=== PATIENT | male | born 1955 | race Caucasian/White ===

== ENCOUNTER 2018-09-11 13:36 | Inpatient (IN) ==
--- OUTSIDE RECORDS SUMMARY | 2018-09-11 13:42 | External Medical Summary | Continuity of Care Document ---
:1955 Author Name Sun Huynh, Provider Address Unavailable Unavailable , Care Team Providers Name Role Phone Rajesh [email or web address] SAMUEL GONZALEZ Unavailable Unavailable Unavailable Unavailable Unavailable Problems Hypertension (401.9) (I10) Pneumothorax (512.89) (J93.9) Blunt chest trauma (959.11) (S29.8XXA) Allergies and Adverse Reactions No Known Drug Allergies (Allergy) Medications Benazepril HCl - 10 MG Oral Tablet; TAKE 1 TABLET DAILY. Start: 05-Aug-2017 Refills: 0 Vitamin E-200 200 UNIT Oral Capsule; TAKE 1 CAPSULE Daily Start: 05-Aug-2017 Refills: 0 Procedures Procedures not documented Immunizations Immunizations not documented Family History Mother No pertinent family history (V49.89) (Z78.9) Status: Active Father No pertinent family history (V49.89) (Z78.9) Status: Active uncle Family history of malignant neoplasm of colon (V16.0) (Z80.0 ) Status: Active Social History - Smoking Status Former smoker Plan of Treatment Planned Observations Planned Goals not documented Results No Known Results Results not documented Encounters Appointment; Jose A Silva M.D. 05-Aug-2017 10:10 Encounter Diagnosis: Problem not documented
[2018-09-11] MEDS ORDERED: dilTIAZem HCl 5 MG/ML 5 ML VIAL IV STA (14:13)
[2018-09-11] MEDS ORDERED: dilTIAZem HCl 125 MG in DEXTROSE 5% 100 ML IV STA (14:13)
[2018-09-11 14:24] LABS: Basophils # (auto) 0.06 K/uL (0-0.2); Basophils % (auto) 0.7 %; Eosinophils # (auto) 0.17 K/uL (0-0.5); Eosinophils % (auto) 1.9 %; Hematocrit (blood only) 44.4 % (42-52); Hemoglobin 15.5 g/dL (14.0-18.0); Immature Granulocytes # (auto) 0.03 K/uL (0.00-0.02); Immature Granulocytes % (auto) 0.3 %; Lymphocytes # (auto) 2.57 K/uL (1.2-3.4); Mean Corpuscular Hgb Conc 34.9 g/dL (32-36); Mean Corpuscular Volume 96.3 fL (80-100); Mean Platelet Volume 10.4 fL (7.4-10.4); Monocytes # (auto) 0.69 K/uL (0.11-0.59); Monocytes % (auto) 7.8 %; Neutrophils # (auto) 5.34 K/uL (1.4-6.5); Neutrophils % (auto) 60.3 %; Platelet Count 183 K/uL (130-400); RDW Coefficient of Variation 13.5 % (11.5-14.5); RDW Standard Deviation 47.5 fL (36.4-46.3); Red Blood Count 4.61 M/uL (4.7-6.1); White Blood Count 8.86 K/uL (4.8-10.8)
--- NOTE | 2018-09-11 14:30 | XRay Report ---
XR chest 1V portable CLINICAL HISTORY: weakness dyspnea COMPARISON STUDY: 08/04/2017 FINDINGS: Cardiomegaly. Diaphragms are smooth. The lungs are clear. IMPRESSION: Cardiomegaly. Otherwise negative study. The above report was generated using voice recognition software. It may contain grammatical, syntax or spelling errors. Electronically signed by: Eusebio Beckman M.D. 09/11/2018 2:29 PM
[2018-09-11 14:33] LABS: INR 1.1 (0.9-1.1); Partial Thromboplastin Time 27.5 Seconds (21.0-31.0); Prothrombin Time 10.9 Seconds (9.0-12.0)
[2018-09-11 14:34] LABS: Alanine Aminotransferase 33 U/L (12-78); Albumin Level 3.6 gm/dl (3.4-5.0); Aspartate Aminotransferase 35 U/L (15-37); BUN Creatinine Ratio 25.1 (10-20); Blood Urea Nitrogen 34 mg/dl (7-18); Calcium 8.9 mg/dl (8.5-10.1); Carbon Dioxide 26 mmol/L (21-32); Chloride 110 mmol/L (98-107); Est GFR (African American) 63.9; Est GFR (Non-African American) 55.1; Glucose 119 mg/dl (70-99); Magnesium 2.2 mg/dl (1.8-2.4); Potassium 3.8 mmol/L (3.5-5.1); Sodium 143 mmol/L (136-145)
[2018-09-11 14:45] LABS: Alkaline Phosphatase 78 U/L (45-117); Bilirubin,Total 1.1 mg/dl (0.2-1); Globulin 3.6 gm/dl (2.5-4.0); Total Protein 7.2 gm/dl (6.4-8.2); Troponin I < 0.015 ng/ml (0-0.045)
--- NOTE | 2018-09-11 15:35 | History & Physical Report ---
Date of Service September 11, 2018 Assessment & Plan (1) Atrial fibrillation with RVR: Telemetry. Continue diltiazem drip. Continue metoprolol orally. Lovenox 1 mg/kg subcutaneously every 12 hours. Await cardiology consultation and recommendations Present on Admission?: Yes (2) Dilated cardiomyopathy: Outpatient cardiac echo today reveals mild LVH with dilated left ventricle with global hypokinesis with ejection fraction 25%. Continue ANIKA inhibitor therapy. Cardiology consultation pending. Considering abnormal EKG, this may be ischemic in nature. Present on Admission?: Yes (3) HTN (hypertension): Continue ANIKA inhibitor and beta-eula therapy (4) DVT prophylaxis: Lovenox subcu History of Present Illness Primary Care Provider: Jolanta Jordan, DO Palpitations, dyspnea on exertion 63-year-old male with essential hypertension who has noticed intermittent palpitations and dyspnea on exertion since June. He was found to have atrial fibrillation with rapid ventricular rate today while he was getting a cardiac echo as an outpatient. The cardiac echo report reveals mild LVH with a dilated ventricle and global hypokinesis with estimated EF 25%. He was sent to the ED for evaluation. EKG reveals lateral T wave inversions. However, he denies any chest pain. He denies lightheadedness or syncope. There is no previous cardiac history. He is now on a Cardizem drip and his rate has been controlled. He takes Toprol-XL 25 mg daily, aspirin 81 mg daily, benazepr il 20/25 1 tablet daily. Pressure is 144/99 on admission. He will be started on Lovenox 1 mg/kg subcutaneously every 12 hours and switch to an oral medication per cardiology recommendations. He is admitted to a telemetry bed. Allergies Allergy/AdvReac Type Severity Reaction Status Date / Time No Known Allergies Allergy Unverified 08/04/17 21:50 Home Medications Home Medications Medication Instructions Recorded Confirmed Type Oxycodone Immediate Rel Tab 1 - 2 tab PO Q4H PRN #20 tab 08/04/17 Rx (ROXICODONE IR) Past Med/Surg History Medical History Dilated cardiomyopathy (Acute) Atrial fibrillation with RVR (Acute) HTN (hypertension) (Chronic) Social History Feels Safe at Home: Yes Smoking Status: Former smoker Review of Systems Review of Systems: Constitutional-no fever or chills ENT-no blurred vision, no double vision, no epistaxis, no sore throat Respiratory-shortness of breath with exertion Cardiac-intermittent palpitations. No chest discomfort GI-no nausea, vomiting, diarrhea, melena, hematochezia -no urinary retention, no urinary incontinence, no dysuria, no hematuria Musculoskeletal-intermittent low back pain with intermittent radiation to the left leg Skin-no bruising, no rashes, no pruritus Neuro-no isolated weakness, no paresthesia, no weakness Psych-no depression, no anxiety Physical Exam Physical Exam: General-alert and oriented x3, no fevers, no chills HEENT-head atraumatic and normocephalic, TMs intact bilaterally, pupils equal and reactive to light, extraocular muscles intact Neck-no lymphadenopathy or thyromegaly, trachea midline Chest-clear to auscultation percussion. No rales wheezing or rhonchi Cardiac-irregular rhythm, rate controlled at this time. No JVD. No audible murmurs Abdomen-normal bowel sounds, nontender, no hepatosplenomegaly Extremities-no cyanosis, clubbing. 1+ pitting edema bilateral lower extremities below the knees Neuro-cranial nerves II through XII intact, motor and sensory function within normal limits, strength symmetrical , no focal deficits Psych-normal affect, normal mood Results & Data Vital Signs (Past 12 Hours) Vital Signs Temp Pulse Resp BP Pulse Ox 09/11/18 14:59 96 09/11/18 13:42 36.5 C 136 H 20 144/99 H 95 Laboratory Results 09/11/18 14:02 09/11/18 14:02 PG Care Time/CCT Total # of Minutes Spent Total Time Spent with Patient: Total time spent is greater than 50% in coordination of care (as documented) at patient's floor/unit and/or counseling patient:
[2018-09-11] MEDS ORDERED: ONDANSETRON INJ 2 MG/ML 2 ML VIAL IV PRN (16:07)
[2018-09-11] MEDS ORDERED: ACETAMINOPHEN 325 MG TAB PO PRN (16:07)
[2018-09-11] MEDS ORDERED: ALUMINUM/MAGNESIUM SUSP 30 ML UDC PO PRN (16:07)
[2018-09-11] MEDS ORDERED: ENOXAPARIN 1 MG/KG SQ SCH (16:07)
[2018-09-11 16:29] LABS: T4 Free Thyroxine 1.14 ng/dl (0.8-1.6)
--- NOTE | 2018-09-11 17:46 | Emergency Department Note ---
Entered by Wilfrid Roberts acting as a scribe for History of Present Illness General Chief complaint: Cardiac Assessment Stated complaint: CARDIAC ACCESSMENT Time Seen by Provider: 09/11/18 14:07 Source: patient History of Present Illness Onset (ago): month(s) 2 Location: chest Pain Consistency: + other (worsening) Maximum Pain Intensity: 0 Quality: + other (shortness of breath) Exacerbated By: + movement Associated symptoms: + other (+increased heart rate; +back aches that will radiate to hips and sides of legs ); no chest pain The patient is a 63 year old male who presents to the Emergency Room with complaints of worsening shortness of breath over the past two months. The patient states that he experiences shortness of breath with physical exertion. The patient also notes increased resting heart rate, but the patient denies chest pain. The patient states he went to see Dr. Sudheer Rand-Hoisting Pile Driving Engineer for these issues, but following an ultrasound performed by Dr. Rand today, the patient reports that Dr. Rand told him he had tachycardia induced cardiomyopathy and that he should go to the ER. The patient also notes of back aches that will radiate to hips and sides of legs.The patient reports he takes metoprolol, benazepril, and low dose aspirin. Home Medications Home Medications Medication Instructions Recorded Confirmed Type aspirin [Aspir-81] 81 mg PO DAILY 09/11/18 09/11/18 History benazepril-hydrochlorothiazide 1 tab PO DAILY 09/11/18 09/11/18 History [Lotensin HCT] ibuprofen [IBU] 600 mg PO QID PRN 09/11/18 09/11/18 History metoprolol succinate [Toprol XL] 50 mg PO DAILY 09/11/18 09/11/18 History sodium chloride [Saline Nasal Mist] 1 spray INTRANASAL BID PRN 09/11/18 09/11/18 History vitamin B complex 1 tab PO DAILY 09/11/18 09/11/18 History Allergies Allergy/AdvReac Type Severity Reaction Status Date / Time No Known Allergies Allergy Unverified 09/11/18 15:36 Past Med/Surg History Medical History Dilated cardiomyopathy (Acute) Atrial fibrillation with RVR (Acute) HTN (hypertension) (Chronic) Family History Other No significant family history Social History Communication Ability: Effective 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 and A total of 10 systems reviewed and were otherwise negative Physical Exam Vital Signs Vital Signs - 24 hr 09/11/18 13:42 09/11/18 14:00 09/11/18 14:10 Temperature 36.5 C Temperature Source Oral Sepsis Recent Fever Within 48 Hours No Sepsis New/Unexplained Change in Mental Status No Sepsis Action Taken by Nursing No Action Required Pulse Rate 136 H 116 H 116 H Pulse Rate from SpO2 Sensor Respiratory Rate 20 23 22 Blood Pressure 144/99 H Blood Pressure Mean 114 Pulse Oximetry 95 Oxygen Delivery Method Room Air Oxygen Flow Rate 09/11/18 14:20 09/11/18 14:30 09/11/18 14:40 Temperature Temperature Source Sepsis Recent Fever Within 48 Hours Sepsis New/Unexplained Change in Mental Status Sepsis Action Taken by Nursing Pulse Rate 121 H 120 H 109 H Pulse Rate from SpO2 Sensor Respiratory Rate 15 16 18 Blood Pressure Blood Pressure Mean Pulse Oximetry Oxygen Delivery Method Oxygen Flow Rate 09/11/18 14:44 09/11/18 14:50 09/11/18 14:55 Temperature Temperature Source Sepsis Recent Fever Within 48 Hours Sepsis New/Unexplained Change in Mental Status Sepsis Action Taken by Nursing Pulse Rate 99 H 87 91 H Pulse Rate from SpO2 Sensor 217 H 93 H 90 Respiratory Rate 18 21 21 Blood Pressure 126/92 130/78 124/78 Blood Pressure Mean 103 95 93 Pulse Oximetry 96 97 97 Oxygen Delivery Method Oxygen Flow Rate 09/11/18 14:59 09/11/18 15:00 09/11/18 15:05 Temperature Temperature Source Sepsis Recent Fever Within 48 Hours Sepsis New/Unexplained Change in Mental Status Sepsis Action Taken by Nursing Pulse Rate 93 H 89 Pulse Rate from SpO2 Sensor 93 H 87 Respiratory Rate 22 20 Blood Pressure 132/78 123/78 Blood Pressure Mean 96 93 Pulse Oximetry 96 97 96 Oxygen Delivery Method Room Air Oxygen Flow Rate 0 09/11/18 15:10 09/11/18 15:15 09/11/18 15:20 Temperature Temperature Source Sepsis Recent Fever Within 48 Hours Sepsis New/Unexplained Change in Mental Status Sepsis Action Taken by Nursing Pulse Rate 95 H 102 H 90 Pulse Rate from SpO2 Sensor 91 H 96 H 90 Respiratory Rate 28 H 20 26 H Blood Pressure 124/86 137/91 127/90 Blood Pressure Mean 98 106 102 Pulse Oximetry 96 98 97 Oxygen Delivery Method Oxygen Flow Rate 09/11/18 15:25 09/11/18 15:30 Temperature Temperature Source Sepsis Recent Fever Within 48 Hours Sepsis New/Unexplained Change in Mental Status Sepsis Action Taken by Nursing Pulse Rate 97 H 87 Pulse Rate from SpO2 Sensor 93 H 82 Respiratory Rate 20 20 Blood Pressure 138/92 126/90 Blood Pressure Mean 107 102 Pulse Oximetry 95 97 Oxygen Delivery Method Oxygen Flow Rate GENERAL: Patient is in no acute distress. HEENT: No acute trauma, normocephalic atraumatic, mucous membranes moist, no nasal congestion, no scleral icterus. NECK: No stridor, no adenopathy, no meningismus, trachea is midline. LUNGS: Clear to auscultation bilaterally, no wheeze, no rhonchi, breath sounds equal. HEART: Irregular and tachycardic. No murmurs. ABDOMEN: Soft, nontender, bowel sounds positive, no hernias, no peritonitis. EXTREMITIES: No cyanosis. Mild bilateral pedal edema. Full range of motion of all the joints without pain or difficulty, no signs for acute trauma. NEUROLOGIC: Oriented x 3, no acute motor or sensory deficits, no focal weakness. SKIN: No rash, no jaundice, no diaphoresis. Course 1409: Past medical records reviewed. The patient was evaluated in room C5. A complete history and physical exam was performed. 1430: I discussed the case [facility]. The patient will be further evaluated. 1506: I evaluated the patient and update him on his results. He is feeling better. 1506: [facility] Edward will further evaluate the patient. Consultations Consultation #1: I discussed the case [facility]. The patient will be further evaluated. Time: 14:30 Consultation #2: [facility] Edward will further evaluate the patient. Time: 15:06 Administered Medications Enoxaparin Sodium (Lovenox) 120 mg SQ Q12H [facility] Stop: 10/11/18 17:59 Last Admin: 09/11/18 17:51 Dose: 120 mg Documented by: [id number] Discontinued Medications Diltiazem HCl (Cardizem) 10 mg IV NOW STA Stop: 09/11/18 14:14 Last Admin: 09/11/18 14:41 Dose: 10 mg Documented by: [id number] Cosigned by: [id number] Diltiazem HCl 125 mg/ Dextrose 125 mls @ 0 mls/hr IV .Q0M STA; Protocol Stop: 09/11/18 14:14 Last Admin: 09/11/18 14:48 Dose: 5 mg/hr, 5 mls/hr Documented by: [id number] Cosigned by: [id number] Medical Decision Making Differential Diagnosis Differential diagnoses include atrial fibrillation or flutter, cardiomyopathy, thyroid disorder, anemia, congestive heart failure, electrolyte imbalance, myocardial infarction, low ejection fraction. Medical Records Attestation: I reviewed the patient's medical records. Home Medications Current Medication List: was personally reviewed by me Laboratory Data Attestation: I reviewed the patient's lab results. Result diagrams: 09/11/18 14:02 09/11/18 14:02 Lab Results 09/11/18 09/11/18 09/11/18 Range/Units 14:02 14:02 14:02 WBC 8.86 (4.8-10.8) K/uL RBC 4.61 L (4.7-6.1) M/uL Hgb 15.5 (14.0-18.0) g/dL Hct 44.4 (42-52) % MCV 96.3 (80-100) fL MCH 33.6 (25-34) pg MCHC 34.9 (32-36) g/dL RDW Std Deviation 47.5 H (36.4-46.3) fL RDW Coeff of Mena 13.5 (11.5-14.5) % Plt Count 183 (130-400) K/uL MPV 10.4 (7.4-10.4) fL Immature Gran % (Auto) 0.3 % Neut % (Auto) 60.3 % Lymph % (Auto) 29.0 % [place] % (Auto) 7.8 % Eos % (Auto) 1.9 % Baso % (Auto) 0.7 % Immature Gran # (Auto) 0.03 H (0.00-0.02) K/uL Neut # (Auto) 5.34 (1.4-6.5) K/uL Lymph # (Auto) 2.57 (1.2-3.4) K/uL [place] # (Auto) 0.69 H (0.11-0.59) K/uL Eos # (Auto) 0.17 (0-0.5) K/uL Baso # (Auto) 0.06 (0-0.2) K/uL PT 10.9 (9.0-12.0) Seconds INR 1.1 (0.9-1.1) APTT 27.5 (21.0-31.0) Seconds PTT Ratio 1.0 Sodium 143 (136-145) mmol/L Potassium 3.8 (3.5-5.1) mmol/L Chloride 110 H (98-107) mmol/L Carbon Dioxide 26 (21-32) mmol/L Anion Gap 7.0 (3-11) BUN 34 H (7-18) mg/dl Creatinine 1.35 (0.6-1.4) mg/dl Est Cr Clr Drug Dosing 75.0 ml/min Est GFR ( Amer) 63.9 Est GFR (Non-Af Amer) 55.1 BUN/Creatinine Ratio 25.1 H (10-20) Glucose 119 H (70-99) mg/dl Calcium 8.9 (8.5-10.1) mg/dl Magnesium 2.2 (1.8-2.4) mg/dl Total Bilirubin 1.1 H (0.2-1) mg/dl AST 35 (15-37) U/L ALT 33 (12-78) U/L Alkaline Phosphatase 78 (45-117) U/L Troponin I < 0.015 (0-0.045) ng/ml Total Protein 7.2 (6.4-8.2) gm/dl Albumin 3.6 (3.4-5.0) gm/dl Globulin 3.6 (2.5-4.0) gm/dl Albumin/Globulin Ratio 1.0 (0.9-2) TSH 1.690 (0.300-4.500) uIu/ml Free T4 1.14 (0.8-1.6) ng/dl Imaging Data Radiologist's Impression: Radiology results as stated below per my review and the radiologist's interpretation: Cardiac Echo by Dr. Sudheer Rand on 09/11/2018 Conclusions: Technically difficult study due to patient body habits; Study successfully enhanced with Definity contract per lab protocol for better endocardial definition to rule out LV apical thrombus. Severely dilated left ventricle. Severe hypokinesis globally with akinesis of the anteroseptal and inferoseptal brown. Severely reduced LV systolic function. Biplane ejection fraction is 25%. Mild concentric left ventricular hypertrophy. No LV thrombus. XR chest 1V portable CLINICAL HISTORY: weakness dyspnea COMPARISON STUDY: 08/04/2017 FINDINGS: Cardiomegaly. Diaphragms are smooth. The lungs are clear. IMPRESSION: Cardiomegaly. Otherwise negative study. The above report was generated using voice recognition software. It may contain grammatical, syntax or spelling errors. Electronically signed by: Eusebio Beckman M.D. 09/11/2018 2:29 PM ECG Data Attestation: I personally reviewed and interpreted this ECG as follows: Indication: SOB/dyspnea Rate (beats per minute): 120 Rhythm: atrial fibrillation (with RVR) Findings: + other (inverted T waves laterally ); no ST elevation Comparison ECG Date: from (09/29/08) Change: the following changes noted (Atrial fibrillation and t wave changes are new) Blood Pressure Blood Pressure Findings: Elevated blood pressure Blood Pressure Disposition: further management by hospitalist [facility] Narrative There is no leukocytosis or worrisome anemia. No coagulopathy. No significant electrolyte abnormality or kidney failure. No concerning liver enzyme e levations. The patient appeared to be in a euthyroid state. EKG showed a rapid A. fib with some lateral T wave changes. Cardiac enzyme testing x1 is not consistent with acute cardiac injury. Chest x-ray shows cardiomegaly, no CHF. The patient received a bolus of IV diltiazem, he was then placed on a diltiazem drip. The patient presents with shortness of breath and rapid A. fib. On echo earlier today, he was found to have a poor EF-25%. The patient requires hospitalization. I did speak with the on-call technical support analyst. I spoke to the patient and case management. The on-call hospitalist was consulted. Patient currently is resting comfortably, his heart rate is nicely controlled on the diltiazem drip. Impression & Plan Atrial fibrillation, rapid, Breath shortness, Acute electrocardiogram changes, Cardiomegaly Critical Care Time Critical Care Time: Yes Total Critical Care Time: 35 I have personally spent 35 minutes of critical care time in the direct management of this patient. This includes bedside care, interpretation of diagnostic studies, and testing, discussion with consultants, patient, and family members, and other required patient management activities. This 35 minutes is in excess of all separately billable procedures. Discharge Plan Visit Data *Final* Discharge Date/Time: 09/11/18 15:44 Chief Complaint: Cardiac Assessment Stated Complaint: CARDIAC ACCESSMENT ED Provider: Juna Arzola Discharge Problem: Atrial fibrillation, rapid, Breath shortness, Acute electrocardiogram changes, Cardiomegaly Patient Disposition: Being Evaluated by Hospitalist Discharge Instructions Interventions: ED Discharge Assessment Last Done: 09/11/18 15:44 The scribe's documentation has been prepared under my direction and personally reviewed by me in its entirety. I confirm that the note above accurately reflects all work, treatment, procedures, and medical decision making performed by me.
[2018-09-11] MEDS: ENOXAPARIN INJ 120 MG/0.8 ML SYR SQ SCH (17:51)
[2018-09-11] MEDS: dilTIAZem HCl 125 MG in DEXTROSE 5% 100 ML IV SCH (23:08)
[2018-09-12] MEDS: dilTIAZem HCl 125 MG in DEXTROSE 5% 100 ML IV SCH (03:44)
[2018-09-12] MEDS: ENOXAPARIN INJ 120 MG/0.8 ML SYR SQ SCH (06:31)
[2018-09-12] MEDS ORDERED: METOPROLOL SUCC 25MG EXT REL TAB PO SCH (09:00)
--- NOTE | 2018-09-12 09:08 | Cardiology Consultation ---
Date of Consultation September 12, 2018 Assessment & Plan (1) Atrial fibrillation, rapid: By history, he has likely had atrial fibrillation for several weeks if not months. It is very likely that his rates were poorly controlled during this time. He was started on low-dose metoprolol as an outpatient and this dose was recently doubled. He was not started on anticoagulation presumably due to his relatively low chads Vasc score at the time of diagnosis. However, in the presence of a cardiomyopathy he will require systemic anticoagulation. He is currently on b.i.d. dosing of Lovenox. Based on the absence of significant angina with activity I think it is unlikely that he will require any urgent coronary evaluation. Very possible that his cardiomyopathy is related to high rates over an extended period. As such, we can likely start him on systemic anticoagulation with either Eliquis or Xarelto. Will attempt to transition him to an oral regimen of rate control agents. Generally speaking does quite well on his current dose of metoprolol and some low-dose diltiazem infusion. Bolaños mary, he has not ambulated much and I suspect his rates will be slightly higher with ambulation. He likely will require another days with a titration in order to achieve reasonable rate control. He may have sleep disturbance which contributes to his atrial fibrillation. He likely should be screened for sleep apnea and treated if diagnosed. (2) Dilated cardiomyopathy: This is presumed to be related to prolonged high ventricular rates. This is likely diagnosis given his history and absence of anginal symptoms. He was taking an ANIKA-inhibitor as an outpatient. He was recent started on metoprolol succinate. He will require an element of diuresis. Whether he will require home diuretic is not yet clear. Hopefully with improved rate control in some time we will see a return of normal LV systolic function. He can months some routine baseline laboratory studies as well to exclude other less common causes. As noted above I do not believe he requires an urgent coronary evaluation but this will need to be considered if he continues to have reduced LV function despite adequate rate control of his atrial fibrillation. While his degree of LV dysfunction does place him at a slightly higher risk of sudden cardiac , do not believe he requires any current prophylaxis. Presumed nonischemic nature of his cardiomyopathy makes his overall likelihood of sudden cardiac much lower. History of Present Illness Reason for Consultation: Atrial fibrillation, cardiomyopathy Requesting Physician: Robe Attending Physician: Rene Nagel MD History of Present Illness The patient is a 63-year-old gentle without a known history of cardiac disease who presented to his primary care physician several weeks ago with symptoms of palpitations and elevated heart rate. Leading up to that visit, the patient had noticed some mild exercise intolerance and dyspnea with activity. On occasion he would have a sensation palpitation but did not have any measurement of his heart rate. In fact, the symptoms were fairly minor any actually sought medical attention for back pain. At his visit he was noted to be tachycardic. An EKG was reportedly performed in the patient was noted to be in atrial fibrillation. His rate was rapid. [facility] was contacted and arrangements were made for an appointment the following day. The arrhythmia was confirmed the patient was began on aspirin and metoprolol. An outpatient echocardiogram was also arranged. Yesterday, the patient apparently had his echocardiogram which demonstrated both atrial fibrillation with a rapid ventricular rate and severely reduced LV systolic function. Based on these findings he was sent to the emergency room for admission. Patient has been fairly sedentary since a fall and subsequent rib fracture late last year. Prior to that he reported exercising regularly at the gym without limiting symptoms of dyspnea or exertional chest discomfort. More recently he EKGs in mild to moderate activity such as carrying wood to his wood shop and carrying laundry up stairs. He reports an element of mild dyspnea with these activities but no exertional chest pain or tightness. He has rare dizziness and lightheadedness but no history of syncope. He has noted some weight gain over the past few months that he attributes to being more sedentary. Recently has developed some mild lower extremity edema. His was present for today's interview and she did report a notable sleep disturbance. She states that for the past 10 years he has slept poorly. She has been concerned about sleep apnea due to his snoring but also notes that he is very restless at night. The patient does report some symptoms consistent with orthopnea recently. He states that he would typically be able to go to sleep but commonly wakes up at 2:23 in the morning with some difficulty breathing. He will need to ambulate or get up out of bed in order to feel be tter. Allergies Allergy/AdvReac Type Severity Reaction Status Date / Time No Known Allergies Allergy Unverified 09/11/18 15:36 Home Medications Home Medications Medication Instructions Recorded Confirmed Type aspirin [Aspir-81] 81 mg PO DAILY 09/11/18 09/11/18 History benazepril-hydrochlorothiazide 1 tab PO DAILY 09/11/18 09/11/18 History [Lotensin HCT] ibuprofen [IBU] 600 mg PO QID PRN 09/11/18 09/11/18 History metoprolol succinate [Toprol XL] 50 mg PO DAILY 09/11/18 09/11/18 History sodium chloride [Saline Nasal Mist] 1 spray INTRANASAL BID PRN 09/11/18 09/11/18 History vitamin B complex 1 tab PO DAILY 09/11/18 09/11/18 History Patient History Medical History Dilated cardiomyopathy (Acute) Atrial fibrillation with RVR (Acute) HTN (hypertension) (Chronic) Family History Other No significant family history Social History Communication Ability: Effective Commodity Specialist Required: No Beliefs That Will Affect Care: None Current Living Situation: Spouse Other Information That Helps Us Care for You: No Feels Safe at Home: Yes Safety Concerns: Feels Safe At This Time Smoking Status: Former smoker Hx Alcohol Use: Yes Alcohol type: beer, wine and hard liquor Hx Substance Use: No Review of Systems Review of Systems: All systems reviewed & are unremarkable except as noted in HPI & below No recent constitutional symptoms such as fevers or chills. notes that the patient's face is commonly very red. This been present for many years. Physical Exam Physical Exam: Abnormal Lab Results The patient is alert and oriented. Mood and affect appeared normal. He answered all questions appropriately. HEENT: Pupils are equal and reactive to light and accommodation. Extraocular movements are intact. The sclerae are anicteric. Neuro: Cranial nerves intact Neck: Patient's neck is supple. He has palpable carotid pulses bilaterally without bruits on auscultation. There is no evidence of jugular venous distention. The thyroid is not enlarged. Lungs: Crackles in the bases bilaterally. No expiratory wheezing. Normal respiratory effort. No use of accessory muscles. Cardiac: Heart demonstrates an irregular rate and rhythm. Normal S1 and S2. No murmurs on examination. Pulses: The patient has palpable radial pulses bilaterally that are equal in intensity Extremities: There was no evidence of hypoperfusion. There is no cyanosis or clubbing. Mild lower extremity edema. Skin: I did not appreciate any rashes on examination today. His face is slightly erythematous. 09/11/18 09/11/18 09/11/18 14:02 14:02 14:02 WBC 8.86 RBC 4.61 L Hgb 15.5 Hct 44.4 MCV 96.3 MCH 33.6 MCHC 34.9 RDW Std Deviation 47.5 H RDW Coeff of Mena 13.5 Plt Count 183 MPV 10.4 Immature Gran % (A uto) 0.3 Neut % (Auto) 60.3 Lymph % (Auto) 29.0 [place] % (Auto) 7.8 Eos % (Auto) 1.9 Baso % (Auto) 0.7 Immature Gran # (A uto) 0.03 H Neut # (Auto) 5.34 Lymph # (Auto) 2.57 [place] # (Auto) 0.69 H Eos # (Auto) 0.17 Baso # (Auto) 0.06 PT 10.9 INR 1.1 APTT 27.5 PTT Ratio 1.0 Sodium 143 Potassium 3.8 Chloride 110 H Carbon Dioxide 26 Anion Gap 7.0 BUN 34 H Creatinine 1.35 Est Cr Clr Drug Do sing 75.0 Est GFR ( A rahul) 63.9 Est GFR (Non-Af Am er) 55.1 BUN/Creatinine Rat io 25.1 H Glucose 119 H Calcium 8.9 Magnesium 2.2 Total Bilirubin 1.1 H AST 35 ALT 33 Alkaline Phosphata se 78 Troponin I < 0.015 Total Protein 7.2 Albumin 3.6 Globulin 3.6 Albumin/Globulin R atio 1.0 TSH 1.690 Free T4 1.14 09/11/18 09/12/18 22:13 06:29 WBC RBC Hgb Hct MCV MCH MCHC RDW Std Deviation RDW Coeff of Mena Plt Count MPV Immature Gran % (A uto) Neut % (Auto) Lymph % (Auto) [place] % (Auto) Eos % (Auto) Baso % (Auto) Immature Gran # (A uto) Neut # (Auto) Lymph # (Auto) [place] # (Auto) Eos # (Auto) Baso # (Auto) PT INR APTT PTT Ratio Sodium Potassium Chloride Carbon Dioxide Anion Gap BUN Creatinine Est Cr Clr Drug Do sing Est GFR ( A rahul) Est GFR (Non-Af Am er) BUN/Creatinine Rat io Glucose Calcium Magnesium Total Bilirubin AST ALT Alkaline Phosphata se Troponin I < 0.015 < 0.015 Total Protein Albumin Globulin Albumin/Globulin R atio TSH Free T4 Results & Data Vital Signs (Past 12 Hours) Vital Signs Temp Pulse Resp BP BP Pulse Ox 09/12/18 07:06 36.7 C 73 18 136/81 96 09/12/18 04:32 36.6 C 75 20 138/75 97 09/12/18 00:51 71 09/11/18 23:07 36.4 C L 83 18 136/87 95
[2018-09-12] MEDS: ASPIRIN 81 MG ECTAB PO SCH (09:21)
[2018-09-12] MEDS: LISINOPRIL/HCTZ 20/25MG 1 TAB PO SCH (09:21)
[2018-09-12] MEDS ORDERED: METOPROLOL TARTRATE 25 MG TAB PO ONE ×2 (09:25→21:00)
[2018-09-12] MEDS ORDERED: FUROSEMIDE 40 MG in SYRINGE 0 ML IV ONE (13:00)
[2018-09-12] MEDS: APIXABAN 5 MG TABLET PO SCH (17:32)
--- NOTE | 2018-09-12 17:33 | Hospitalist Progress Note ---
Date of Service September 12, 2018 Assessment & Plan (1) Atrial fibrillation with RVR: New onset, though per history, has probably been going on for months. - Continue beta-eula (with doubled dose today per cardiology) - Continue anticoagulation - Diuresis as able - Wean dilt gtt as able (2) Dilated cardiomyopathy: Outpatient cardiac echo today revealed mild LVH with dilated left ventricle with global hypokinesis with ejection fraction 25%. - Cardiology consulted - Appreciate help. - Continue ANIKA inhibitor therapy. - Plan to diurese and control rate. At this time, it does not seem he needs cath to look for ischemic disease. (3) HTN (hypertension): - Continue ANIKA inhibitor and beta-eula therapy (4) Obstructive sleep apnea: No official diagnosis, but reports he snores and has apneic periods during sleep. - Counseled the importance of testing and treatment in regards to heart health and his afib - Follow up with new PCP (5) DVT prophylaxis: Skylar Cadena Feels well. No major concerns this morning apart from his overall status with the new afib. Review of Systems Review of Systems: All systems reviewed & are unremarkable except as noted in HPI & below Physical Exam Constitutional: WD/WN, vitals as above Eyes: EOM intact bilaterally; no conjunctival abnormality ENMT: external ear and nose normal, oropharynx normal Neck: trachea midline, no thyromegaly normal visual inspection Respiratory: normal respiratory effort, lungs clear to auscultation no respiratory distress Cardiovascular: Rate/Rhythm: regular rate and + irregularly irregular Heart Sounds: normal S1 and normal S2 Gastrointestinal (Abdomen): Inspection/Auscultation: abdomen normal to inspection; abdomen not distended Musculoskeletal: no cyanosis or clubbing, extremities motor strength 5/5 Skin: no rashes, warm and dry Neurologic: moves all extremities and awake Psychiatric: Orientation: alert, oriented to person and cooperative Results & Data Vital Signs (Past 12 Hours) Vital Signs Temp Pulse Resp BP Pulse Ox 09/12/18 15:43 36.6 C 101 H 19 108/69 95 09/12/18 11:44 36.7 C 77 18 131/93 97 09/12/18 07:06 36.7 C 73 18 136/81 96 PG Care Time/CCT Total # of Minutes Spent Total Time Spent with Patient: Total time spent is greater than 50% in coordination of care (as documented) at patient's floor/unit and/or counseling patient:
[2018-09-13] MEDS: dilTIAZem HCl 125 MG in DEXTROSE 5% 100 ML IV SCH (05:48)
[2018-09-13] MEDS: APIXABAN 5 MG TABLET PO SCH (08:08)
[2018-09-13] MEDS: LISINOPRIL/HCTZ 20/25MG 1 TAB PO SCH (08:08)
[2018-09-13] MEDS: ASPIRIN 81 MG ECTAB PO SCH (08:08)
[2018-09-13 08:52] LABS: BUN Creatinine Ratio 23.8 (10-20); Calcium 9.1 mg/dl (8.5-10.1); Creatinine Clr Calc Pharmacy 95.8 ml/min; Est GFR (African American) 87.5; Est GFR (Non-African American) 75.5; Potassium 3.7 mmol/L (3.5-5.1)
[2018-09-13] MEDS ORDERED: METOPROLOL SUCC 50MG EXT REL TAB PO SCH (09:00)
[2018-09-13] MEDS ORDERED: FUROSEMIDE 40 MG/4 ML VIAL IV STA (09:34)
--- NOTE | 2018-09-13 09:47 | Cardiology Progress Note ---
Date of Service September 13, 2018 Assessment & Plan (1) Atrial fibrillation, rapid: Overall rate control appears markedly improved. Curiously, he was on 50 milligrams of metoprolol succinate as an outpatient with rapid ventricular rates. I suspect that with adequate diuresis his heart rates have improved. I think we can discontinue the diltiazem. I think he will likely have adequate rate control on metoprolol alone. He will need to ambulate today and will need to monitor his heart rates with activity. He may require slightly more metoprolol for adequate rate control. However, if his rates are reasonable and he is feeling well with ambulation he likely could be discharged today. He was started on systemic anticoagulation with Eliquis which should be continued indefinitely A decision can be made as an outpatient regarding the need for cardioversion or a rhythm control strategy. Patient can be referred for outpatient evaluation of possible sleep apnea. (2) Dilated cardiomyopathy: He had an significant diuresis yesterday with a single dose of diuretic. He will receive a slightly lower dose this morning. It is unclear whether he will require continued diuresis as an outpatient. Can monitor his weights and symptoms at home and notify his primary public health dietitian for weight gain. He can likely use diuretics on a p.r.n. basis for weight gain. He will be continued on metoprolol succinate and Paul inhibition. It is very likely his cardiomyopathy is related to sustained high ventricular rates. He does not have symptoms consistent with coronary insufficiency or angina. I think coronary angiography can be deferred at this time until his his LV function has been re-evaluated in a few weeks. Subjective Is more the patient claims to be feeling well. He reported ambulating some degree yesterday without symptoms of limiting dyspnea or dizziness. He did not describe any chest pain currently. No other complaints. Review of Systems Review of Systems: Per HPI Physical Exam Physical Exam: The patient is alert and oriented. Mood and affect appeared normal. He answered all questions appropriately. HEENT: Pupils are equal and reactive to light and accommodation. Extraocular movements are intact. The sclerae are anicteric. Neuro: Cranial nerves intact Lungs: Clear to auscultation bilaterally. He has good air movement without use of accessory muscles. No rales wheezes or rhonchi. Cardiac: Heart demonstrates an irregular rate and rhythm. Normal S1 and S2. No murmurs on examination. Pulses: The patient has palpable radial pulses bilaterally that are equal in intensity Extremities: There was no evidence of hypoperfusion. There is no cyanosis or clubbing. Skin: I did not appreciate any rashes on examination today. Results & Data Vital Signs (Past 12 Hours) Vital Signs Temp Pulse Resp BP Pulse Ox 09/13/18 07:31 36.7 C 81 17 144/79 H 95 09/13/18 03:12 36.4 C L 85 18 133/92 97 09/12/18 23:02 36.8 C 80 16 111/85 95 Laboratory Results Abnormal Lab Results 09/13/18 08:04 Sodium 138 Potassium 3.7 Chloride 103 Carbon Dioxide 27 Anion Gap 8.0 BUN 25 H Creatinine 1.04 Est Cr Clr Drug Dosing 95.8 Est GFR ( Amer) 87.5 Est GFR (Non-Af Amer) 75.5 BUN/Creatinine Ratio 23.8 H Glucose 96 Calcium 9.1 ECG Additional Comments: Atrial fibrillation with controlled ventricular response
--- NOTE | 2018-09-13 17:20 | Discharge Summary ---
Date of Service September 13, 2018 Admission HPI Per Admitting Provider Palpitations, dyspnea on exertion 63-year-old male with essential hypertension who has noticed intermittent palpitations and dyspnea on exertion since June. He was found to have atrial fibrillation with rapid ventricular rate today while he was getting a cardiac echo as an outpatient. The cardiac echo report reveals mild LVH with a dilated ventricle and global hypokinesis with estimated EF 25%. He was sent to the ED for evaluation. EKG reveals lateral T wave inversions. However, he denies any chest pain. He denies lightheadedness or syncope. There is no previous cardiac history. He is now on a Cardizem drip and his rate has been controlled. He takes Toprol-XL 25 mg daily, aspirin 81 mg daily, benazepril 20/25 1 tablet daily. Pressure is 144/99 on admission. He will be started on Lovenox 1 mg/kg subcutaneously every 12 hours and switch to an oral medication per cardiology recommendations. He is admitted to a telemetry bed. Principal Diagnosis Afib with cardiomyopathy. Mild volume overload. Discharge Exam Constitutional WD/WN, vitals as above Eyes EOM intact bilaterally; no conjunctival abnormality ENMT external ear and nose normal, oropharynx normal Neck trachea midline, no thyromegaly normal visual inspection Respiratory normal respiratory effort, lungs clear to auscultation no respiratory distress Cardiovascular Rate/Rhythm: regular rate and + irregularly irregular Heart Sounds: normal S1 and normal S2 Gastrointestinal (Abdomen) Inspection/Auscultation: abdomen normal to inspection; abdomen not distended Musculoskeletal no cyanosis or clubbing, extremities motor strength 5/5 Skin no rashes, warm and dry Neurologic moves all extremities and awake Psychiatric Orientation: alert, oriented to person and cooperative Discharge Data Allergies Allergy/AdvReac Type Severity Reaction Status Date / Time No Known Allergies Allergy Unverified 09/11/18 15:36 Consultations 09/11/18 15:03 ED Decision to Admit Stat 09/11/18 16:07 Consult Cardiology Routine Hospital Course (1) Atrial fibrillation with RVR: New onset, though per history, has probably been going on for months. - Discharged on Toprol XL 75mg & apixaban - Rates on discharge were ~90 at rest, 110 with exertion. Can titrate beta- eula as needed. - Follow up with Dr. Sandoval (2) Dilated cardiomyopathy: Outpatient cardiac echo on admission revealed mild LVH with dilated left ventricle with global hypokinesis with ejection fraction 25%. 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 - Was already on ANIKA inhibitor therapy. - Titrated beta-eula to improve rates. - Gently diuresed with IV Lasix 40mg x 2. Was discharged with PRN Lasix PO to maintain a baseline weight. - Follow up with Jaime - No need for ischemic work-up at this time per inpatient cardiology. - Reassess cardiac function in a few months with rate control. (3) HTN (hypertension): - Continue ANIKA inhibitor and beta-eula therapy (4) Obstructive sleep apnea: No official diagnosis, but reports he snores and has apneic periods during sleep. - Counseled the importance of testing and treatment in regards to heart health and his afib - Follow up with new PCP (5) DVT prophylaxis: Eliquis Total Time Total Time Spent Total Time Spent (In Minutes): 35 Total Time Includes: Examination of the Patient and Communication With Other Providers Discharge Plan Discharge Items Patient Disposition: Home - Self-Care Reason For Visit: ATRIAL FIBRILLATION WITH RAPID VENTRICULAR RATE Discharge Diagnosis: ATRIAL FIBRILLATION WITH RAPID VENTRICULAR RATE Discharge Goals: Decrease discomfort, Diagnostic testing and Improve disease control Activity: Resume your previous activity Non-emergency contact: Primary Care Provider and Neonatal Pediatric Nurse Call non-emergency contact if: your symptoms worsen, your pain is not controlled and your temperature is above 101 Follow-up/Referrals: Jolanta Jordan DO [Primary Care Provider] - Joe Sandoval DO [Physician] - (Please see Dr. Sandoval in 1-2 weeks.) Diet: Heart Healthy and Low Sodium (2gm) Addtl Provider Instructions: Mr. Herron, you were admitted to the hospital with a rapid heart rate caused by atrial fibrillation. We controlled your heart rate with a medication called metoprolol, and we are discharging you on a slightly higher dose than when you came in. We are starting you on a medication called apixaban (Eliquis) for a blood thinner. Please take this two times per day. Be cautious with falls or sharp objects as it can cause you to bleed more. Please avoid taking ibuprofen while on apixaban as it can cause your blood to get too thin. Instead, take acetaminophen (Tylenol) for muscle aches and pains. We gave you Lasix (furosemide) to help your kidneys excrete excess fluid which worked well. On discharge, your weight is 255 lbs on our scales. Please weigh yourself at home this afternoon to determine your "baseline weight" on your scale. Then, weigh yourself every morning in the same fashion. If you gain more than 3 lbs, please take Lasix 40mg by mouth every day until you are back at your baseline weight. Follow up with Dr. Sandoval in his office as soon as you are able. He will help manage your cardiac medications and follow up with your heart health. Please get a sleep study as soon as you are able. Sleep apnea can easily play a role in heart health and blood pressure. Prescriptions: New Eliquis 5 mg Tablet 5 mg PO BID Qty: 60 RF: 0 furosemide [Lasix] 40 mg tablet 40 mg PO DAILY PRN (Reason: weight gain) Qty: 30 RF: 0 Continued benazepril-hydrochlorothiazide [Lotensin HCT] 20-25 mg tablet 1 tab PO DAILY RF: 0 aspirin [Aspir-81] 81 mg Tablet,Delayed Release (Dr/Ec) 81 mg PO DAILY RF: 0 vitamin B complex Tablet 1 tab PO DAILY RF: 0 sodium chloride [Saline Nasal Mist] 0.65 % Aerosol,[place] 1 spray INTRANASAL BID PRN (Reason: Nasal Congestion) RF: 0 Changed metoprolol succinate [Toprol XL] 25 mg tablet extended release 24 hr 75 mg PO DAILY Qty: 90 RF: 0 Discontinued ibuprofen [IBU] 600 mg tablet 600 mg PO QID PRN (Reason: arthritis pain) RF: 0 Stand-Alone Forms: [facility] Discharge Orders: Discharge Order (Routine); Ordered 09/13/18 Ordered By: Rene Nagel Admission Data Admit Date/Time: 09/11/18 15:35 Attending Provider: Rene Nagel Admit Provider: Sudheer Edward Primary Care Provider: Jolanta Jordan Other Providers: Oren James ; Rene Nagel Service: Telemetry Other Interventions: Discharge Summary Assessment (RN) Last Done: 09/13/18 14:10 DC Date/Time DO NOT enter until pt leaves facility: 09/13/18 15:25
== END 2018-09-13 15:25 | disposition home or self-care (01) | DRG 310 ==
LOC: ED 13:36 → SUATTDRO 15:35 → 2S 15:35
DX: I48.91 Unspecified atrial fibrillation; I42.0 Dilated cardiomyopathy; E87.70 Fluid overload, unspecified; Z79.82 Long term (current) use of aspirin; I10 Essential (primary) hypertension; Z79.899 Other long term (current) drug therapy